=== PATIENT | male | born 1985 | race African-American/Black ===

== ENCOUNTER 2019-10-22 18:10 | Emergency (ER) | payer MEDICAID, OTHER ==
[~2019-10-22] VITALS: Ht 175.3 cm; Wt 97.5 kg
[2019-10-22 18:22] VITALS: BP 121/70
[2019-10-22] MEDS ORDERED: IBUPROFEN 600 MG TAB PO ONE (18:30)
[2019-10-22] MEDS ORDERED: ACETAMINOPHEN 325 MG TAB PO ONE (18:30)
== END 2019-10-22 20:33 | disposition home or self-care (01) ==
LOC: ER 18:10
DX: J10.1 Influenza due to other identified influenza virus with other respiratory manifestations (principal); F17.210 Nicotine dependence, cigarettes, uncomplicated
CPT/HCPCS: 71046; 87804

== ENCOUNTER 2019-10-24 07:23 | Emergency (ER) | payer MEDICAID ==
[~2019-10-24] VITALS: Ht 175.3 cm; Wt 97.5 kg
[2019-10-24] MEDS ORDERED: ACETAMINOPHEN 325 MG TAB PO ONE ×2 (07:39→07:45)
[2019-10-24] MEDS ORDERED: cefTRIAXone SOD 1,000 MG VL IM ONE (08:15)
[2019-10-24] MEDS ORDERED: IBUPROFEN 800 MG TAB PO ONE (08:15)
[2019-10-24 09:20] VITALS: BP 132/98
== END 2019-10-24 09:22 | disposition home or self-care (01) ==
LOC: ER 07:23
DX: J84.89 Other specified interstitial pulmonary diseases (principal); J20.9 Acute bronchitis, unspecified; J02.9 Acute pharyngitis, unspecified; F17.210 Nicotine dependence, cigarettes, uncomplicated
CPT/HCPCS: 71046; 96372; 99283; J0696

== ENCOUNTER 2024-08-08 10:38 | Emergency (ER) | payer MEDICAID ==
[~2024-08-08] VITALS: Ht 175.3 cm; Wt 83.4 kg
[~2024-08-08 10:38] MED LIST: AMIT-256 PO; DIVA-91 PO; QUET400T PO
[2024-08-08 12:03] VITALS: BP 129/63; PULSE 117; RESP 17; TEMP 98.2; O2SAT 97
[2024-08-08] MEDS ORDERED: ACE3T PO (12:12)
--- NOTE | 2024-08-08 12:18 | ED.PDOC ---
History of Present Illness HPI Comments A 38 YEAR OLD MALE PRESENTS TO THE ED WITH COMPLAINT OF RX REFILL. PT RECENTLY HAD DENTAL PROCEDURE WHERE THREE TEETH WERE EXTRACTED. PT WAS PRESCRIBED NORCO BUT HAS RUN OUT AND IS STILL EXPERIENCING PAIN. PATIENT DENIES FEVER, CHILLS, SHORTNESS OF BREATH, CHEST PAIN, ABDOMINAL PAIN, NAUSEA, VOMITING, HEADACHE, OR OTHER COMPLAINTS. NO OTHER SYMPTOMS OR MODIFYING FACTORS AT THIS TIME. PATIENT IS ALERT, ORIENTED X 4, AND HAS STEADY GAIT. Chief Complaint: Tooth Pain Time Seen by MD: 12:08 Primary Care Provider: HEIDY Reviewed Notes: Nurses Notes, Medications, Allergies Allergies: Coded Allergies: No Known Drug Allergy (Verified Allergy, Unknown, 07/28/24) Home Meds Active Scripts Acetaminophen W/ Codeine (Tylenol W/Cod #3) 1 Tab Tb, 1 TAB PO TID, #15 TAB Prov:NOEMY HERNANDEZ 08/08/24 Reported Medications Amitriptyline HCl (Amitriptyline Hydrochlori) 50 Mg Tab, 1 TAB PO DAILY for 30 Days, #30 04/16/24 Quetiapine Fumerate (Seroquel) 400 Mg Tab, 1 TAB PO QPM for 30 Days, #30 04/16/24 Divalproex Sodium (Depakote) 500 Mg Tab, 2 TAB PO QPM for 30 Days, #60 04/14/24 Information Source: Patient Mode of Arrival: Ambulatory Severity: Mild Timing: Days Duration: Since onset Medication Refill: Ran out of Medication, For: Pain (UPPER DENTAL PAIN ) Past Medical History PAST MEDICAL HISTORY: Denies Surgical History: Denies all surgeries Family History Family History: Unknown Social History Smoker: Cigarettes Alcohol: Occasionally Drugs: Denies Drug Use Lives In: Home Constitutional: denies: chills, diaphoresis, fatigue, fever, malaise, sweats, weakness, others EENTM: reports: mouth pain, others (TEETH PAIN); denies: blurred vision, double vision, ear bleeding, ear discharge, ear drainage, ear pain, ear ringing, eye pain, eye redness, hearing loss, nasal discharge, nose bleeding, nose congestion, nose pain, photophobia, tearing, throat pain, throat swelling, voice changes Respiratory: denies: cough, hemoptysis, orthopnea, SOB at rest, shortness of breath, SOB with excertion, stridor, wheezing, others Cardiovascular: denies: chest pain, dizzy spells, diaphoresis, Dyspnea on exertion, edema, irregular heart beat, left arm pain, lightheadedness, palpitations, PND, syncope, others Gastrointestinal: denies: abdomen distended, abdominal pain, blood streaked bowels, constipated, diarrhea, dysphagia, difficulty swallowing, hematemesis, melena, nausea, poor appetite, poor fluid intake, rectal bleeding, rectal pain, vomiting, others Genitourinary: denies: burning, dysuria, flank pain, frequency, hematuria, incontinence, penile discharge, penile sore, pain, testicle pain, testicle swelling, urgency, others Neurological: denies: dizziness, fainting, headache, left sided numbness, left sided weakness, numbness, paresthesia, pre-existing deficit, right sided numbnes s, right sided weakness, seizure, speech problems, tingling, tremors, weakness, others Musculoskeletal: denies: back pain, gout, joint pain, joint swelling, muscle pain, muscle stiffness, neck pain, others Integumetry: denies: bruises, change in color, change in hair/nails, dryness, laceration, lesions, lumps, rash, wounds, others Allergic/Immunocompromised: denies: Difficulty Healing, Frequent Infections, Hives, Itching, others Hematologic/Lymphatic: denies: anemia, blood clots, easy bleeding, easy bruising, swollen glands, others Endocrine: denies: excessive hunger, excessive sweating, excessive thirst, excessive urination, flushing, intolerance to cold, intolerance to heat, unexplained weight gain, unexplained weight loss, others Psychiatric: denies: anxiety, bipolar disorder, depression, hopeless, panic disorder, schizophrenia, sleepless, suicidal, others All Other Systems: Reviewed and Negative Physical Exam General Appearance: No Apparent Distress, Normal HEENT: Normal ENT Inspection, PERRL/EOMI, Pharynx Normal, TMs Normal, Other (TENDERNESS ON UPPER GUM AROUND TOOTH, NO BLEEDING AND BLOOD CLOTS. ) Neck: Full Range of Motion, Non-Tender, Normal, Normal Inspection Respiratory: Chest Non-Tender, Lungs Clear, No Accessory Muscle Use, No Respiratory Distress, Normal Breath Sounds Cardiovascular: No Edema, No JVD, No Murmur, No Gallop, Normal Peripheral Pulses, Regular Rate/Rhythm Breast Exam: Deferred Gastrointestinal: No Organomegaly, Non Tender, No Pulsatile Mass, Normal Bowel Sounds, Soft Genitalia: Deferred Pelvic: Deferred Rectal: Deferred Extremities: No calf tenderness, Normal capillary refill, Normal inspection, Normal range of motion, Non-tender, No pedal edema Musculoskeletal : Apperance: Normal Neurologic: Alert, manufacturing operator II-XII nml as Tested, No Motor Deficits, Normal Affect, Normal Mood, No Sensory Deficits Cerebellar Function: Normal Reflexes: Normal Skin: Dry, Normal Color, Warm Peripheral Pulses: 2+ carotid (R), 2+ carotid (L) Lymphatic: No Adenopathy Was a procedure done? Was a procedure done?: No Differential Dx Considerations may include: DENTAL PAIN, PAIN MANAGEMENT X-Ray, Labs, Meds, VS Vital Signs Date Time Temp Pulse Resp B/P (MAP) Pulse Ox O2 Delivery O2 Flow Rate FiO2 08/08/24 12:03 98.2 117 17 129/63 (85) 97 98.2 08/08/24 12:03 117 17 97 Room Air* 0 21 08/08/24 11:10 98.2 117 17 129/63 (85) 97 X-Ray, Labs, Meds, VS Comment COURSE: EXTERNAL MEDICAL RECORDS REVIEWED: [NONE] INDEPENDENT HISTORIANS: [NONE] SOCIAL DETERMINANTS OF HEALTH: [NONE] LABS ORDERED: NONE REVIEWED AND INTERPRETED RESULTS: NONE IMAGING ORDERED: NONE TREATMENTS ORDERED: NONE PROCEDURES PERFORMED: NONE CRITICAL CARE TIME: NONE I HAVE DISCUSSED THE PATIENT WITH THE ATTENDING PHYSICIAN DR. MIRANDA LORENZ AND SHE AGREES WITH THE PATIENT'S PLAN OF CARE AND DISPOSITION. GIVEN THE HISTORY AND PRESENT ILLNESS OF THE PATIENT, AFTER REVIEWING LABS, IMAGING, AND COURSE OF TREATMENT ADMINISTERED DURING THEIR ED VISIT, THERE IS LOW SUSPICION FOR RED FLAG FINDINGS. BASED ON HISTORY OF PRESENT ILLNESS, AND PHYSICAL EXAM, PATIENT WILL BE DISCHARGED HOME. DISCUSSED PLAN FOR DISCHARGE HOME WITH RX. MEDICATION WARNINGS GIVEN. SHARED DECISION MAKING: DISCUSSED WITH PATIENT THAT THEIR WORKUP WAS NORMAL. PATIENT INSTRUCTED TO FOLLOW UP WITH PRIMARY CARE PROVIDER IN 1-2 DAYS FOR RE- EVALUATION OF SYMPTOMS. PATIENT VERBALIZES UNDERSTANDING TO RETURN TO ED FOR NEW OR WORSENING SYMPTOMS OR IF FOLLOW UP WITH PCP CANNOT BE OBTAINED. PATIENT FEELS COMFORTABLE GOING HOME AT THIS TIME. ALL QUESTIONS ADDRESSED AT TIME OF DISCHARGE. Time of 1ST Reevaluation: 12:24 Reevaluation 1ST: Improved Patient Education/Counseling: Diagnosis, Treatment, Need For Follow Up Family Education/Counseling: Diagnosis, Treatment, No Family Present Medical Screening: No EMC Exist At This Time Departure 1 Departure Time of Disposition: 12:24 Impression: Primary Impression: Pain, dental Additional Impression: Medication refill Disposition: HOME / SELF CARE / HOMELESS Condition: Stable Additional Instructions: FOLLOW-UP WITH PCP IN 1 TO 2 DAYS. TAKE MEDICATIONS PRESCRIBED. RETURN TO ED FOR ANY NEW OR WORSENING SYMPTOMS. e-Prescriptions Acetaminophen W/ Codeine (Tylenol W/Cod #3) 1 Tab Tb 1 TAB PO TID, #15 TAB Prov: NOEMY HERNANDEZ 08/08/24 Discharged With: Self Critical Care Note Critical Care Time?: No Stability Stability form required: No Heart Score Heart Score: Heart Score Response (Comments) Value History N/A 0 EKG N/A 0 Age N/A 0 Risk Factors N/A 0 Troponin N/A 0 Total 0 I personally scribed for NOEMY HERNANDEZ ([email or web address]) on 08/08/24 at 12:18. Electronically submitted by Shana Landaverde ([email or web address]). NOEMY HERNANDEZ Aug 08, 2024 12:18
== END 2024-08-08 12:23 | disposition home or self-care (01) ==
LOC: ER 10:38
DX: K08.89 Other specified disorders of teeth and supporting structures (principal); F17.210 Nicotine dependence, cigarettes, uncomplicated; Z76.0 Encounter for issue of repeat prescription; Z79.899 Other long term (current) drug therapy

== ENCOUNTER 2024-09-22 03:10 | Emergency (ER) | payer MEDICAID ==
[~2024-09-22] VITALS: Ht 175.3 cm; Wt 80.3 kg
[~2024-09-22 03:10] MED LIST changes: +ACE3T PO
[2024-09-22 04:21] VITALS: BP 141/76; PULSE 90; RESP 20; TEMP 98.3; O2SAT 97
[2024-09-22] MEDS ORDERED: IBUP-1456 PO (04:40)
[2024-09-22] MEDS ORDERED: CLIN1CAP70 PO (04:40)
--- NOTE | 2024-09-22 04:40 | ED.PDOC ---
Eye-HPI HPI Comments 38-YEAR-OLD MALE PRESENTS TO ER WITH COMPLAINTS OF TOOTHACHE X1 MONTH. PATIENT REPORTS HE HAD A LEFT LOWER WISDOM TOOTH REMOVED ONE MONTH AGO AND HAS SINCE BEEN EXPERIENCING PAIN WITH ASSOCIATED LEFT-SIDED FACIAL SWELLING X1 MONTH THAT GOT WORSE X4 DAYS PROMPTING HIM TO COME TO ER FOR FURTHER EVALUATION. STATES HE DID FOLLOW UP WITH HIS ORAL SURGEON AT ONSET OF WORSENING SYMPTOMS FOUR DAYS AGO AND WAS PRESCRIBED AUGMENTIN ANTIBIOTICS THAT HE HAS BEEN TAKING WITHOUT RELIEF AND STATES THAT HE IS FOLLOWING UP WITH HIS ORAL SURGEON AGAIN TODAY. PATIENT RATES HIS CURRENT PAIN A 10/10 LOCALIZED TO REGION OF WHERE HIS LEFT LOWER WISDOM TOOTH WAS WITH RADIATION TOWARDS THE LEFT SIDE OF FACE. PATIENT PRESENTS TO ER AMBULATORY ON ARRIVAL, WITH STEADY GAIT, IN NO DISTRESS. DENIES FEVER, BODY ACHES, CHILLS, HEADACHE, NIGHT SWEATS, SHORTNESS OF BREATH OR ANY FURTHER SYMPTOMS/COMPLAINTS Chief Complaint: Tooth Pain Time Seen by MD: 03:24 Primary Care Provider: HEIDY Ordonez Notes: Nurses Notes, Medications, Allergies Allergies: Coded Allergies: No Known Drug Allergy (Verified Allergy, Unknown, 07/28/24) Home Meds Active Scripts Ibuprofen (Ibuprofen) 800 Mg Tab, 1 TAB PO TID PRN, #30 TAB 0 Refills Prov:LAUREN MORRISON 09/22/24 Clindamycin Hcl (Clindamycin Hcl) 300 Mg Cap, 300 MG PO QID for 7 Days, #28 CAP 0 Refills Prov:LAUREN MORRISON 09/22/24 Acetaminophen W/ Codeine (Tylenol W/Cod #3) 1 Tab Tb, 1 TAB PO TID, #15 TAB Prov:NOEMY HERNANDEZ 08/08/24 Reported Medications Amitriptyline HCl (Amitriptyline Hydrochlori) 50 Mg Tab, 1 TAB PO DAILY for 30 Days, #30 04/16/24 Quetiapine Fumerate (Seroquel) 400 Mg Tab, 1 TAB PO QPM for 30 Days, #30 04/16/24 Divalproex Sodium (Depakote) 500 Mg Tab, 2 TAB PO QPM for 30 Days, #60 04/14/24 Information Source: Patient Mode of Arrival: Ambulatory Past Medical History PAST MEDICAL HISTORY: Denies Surgical History (Other): LEFT LOWER WISDOM TOOTH REMOVAL- "ONE MONTH AGO" Family History Family History: Unknown Social History Smoker: Cigarettes, Less Than 1 Pack/Day Alcohol: Occasionally Drugs: Denies Drug Use Lives In: Home Constitutional: denies: chills, diaphoresis, fatigue, fever, malaise, sweats, weakness, others EENTM: reports: others ( STATED IN HPI) Respiratory: denies: cough, hemoptysis, orthopnea, SOB at rest, shortness of breath, SOB with excertion, stridor, wheezing, others Cardiovascular: denies: chest pain, dizzy spells, diaphoresis, Dyspnea on exertion, edema, irregular heart beat, left arm pain, lightheadedness, palpitations, PND, syncope, others Gastrointestinal: denies: abdomen distended, abdominal pain, blood streaked bowels, constipated, diarrhea, dysphagia, difficulty swallowing, hematemesis, melena, nausea, poor appetite, poor fluid intake, rectal bleeding, rectal pain, vomiting, others Genitourinary: denies: burning, dysuria, flank pain, frequency, hematuria, incontinence, penile discharge, penile sore, pain, testicle pain, testicle swelling, urgency, others Neurological: denies: dizziness, fainting, headache, left sided numbness, left sided weakness, numbness, paresthesia, pre-existing deficit, right sided nu mbness, right sided weakness, seizure, speech problems, tingling, tremors, weakness, others Musculoskeletal: denies: back pain, gout, joint pain, joint swelling, muscle pain, muscle stiffness, neck pain, others Integumetry: reports: others ( STATED IN HPI) Allergic/Immunocompromised: denies: Difficulty Healing, Frequent Infections, Hives, Itching, others Hematologic/Lymphatic: denies: anemia, blood clots, easy bleeding, easy bruising, swollen glands, others Endocrine: denies: excessive hunger, excessive sweating, excessive thirst, excessive urination, flushing, intolerance to cold, intolerance to heat, unexplained weight gain, unexplained weight loss, others Psychiatric: denies: anxiety, bipolar disorder, depression, hopeless, panic disorder, schizophrenia, sleepless, suicidal, others Physical Exam General Appearance: No Apparent Distress HEENT: PERRL/EOMI, Pharynx Normal, TMs Normal, Other (ABSENT LEFT LOWER WISDOM TOOTH NOTED WITH MILD SURROUNDING GUM SWELLING/ERYTHEMA, NO BLEEDING/DRAINAGE APPRECIATED. MILD LEFT-SIDED FACIAL SWELLING ALSO NOTED, NO FURTHER SKIN CHANGES NOTED.) Neck: Full Range of Motion, Non-Tender, Normal Respiratory: Chest Non-Tender, Lungs Clear, No Accessory Muscle Use, No Respiratory Distress, Normal Breath Sounds Cardiovascular: No Murmur, No Gallop, Regular Rate/Rhythm Breast Exam: Deferred Gastrointestinal: NOT DONE Genitalia: Deferred Pelvic: Deferred Rectal: Deferred Extremities: Normal capillary refill, Normal range of motion Neurologic: Alert, ventilation equipment tender II-XII nml as Tested, No Motor Deficits, Normal Affect, Normal Mood, No Sensory Deficits Cerebellar Function: Normal Reflexes: Normal Skin: Dry, Normal Color, Warm Lymphatic: No Adenopathy Was a procedure done? Was a procedure done?: No Sedation Sedation?: No EENT DIFF Eye: N/A Mouth: Thrush, Other (MEHUL'S ANGINA, DENTAL ABSCESS) X-Ray, Labs, Meds, VS Vital Signs Date Time Temp Pulse Resp B/P (MAP) Pulse Ox O2 Delivery O2 Flow Rate FiO2 09/22/24 04:21 98.3 90 20 141/76 (97) 97 98.3 09/22/24 04:21 90 20 97 Room Air 09/22/24 03:30 98.3 90 20 141/76 (97) 97 HEP-LOCK IV ORDERED CLINDAMYCIN 900 MG IV ORDERED ROCEPHIN 1 G IV ORDERED TORADOL 30 MG IV ORDERED HURRICANE SPRAY ORDERED, PATIENT EDUCATED ON PROPER USE/DOSAGE SMOKING CESSATION DISCUSSED AND ADVISED PATIENT HAD IMPROVEMENT IN SYMPTOMS AND IN NO DISTRESS PRIOR TO DISCHARGE ADVISED TO DISCONTINUE AUGMENTIN ANTIBIOTICS AND TAKE THE FOLLOWING ANTIBIOTICS BELOW PRESCRIBED PATIENT STATES HE IS FOLLOWING UP WITH HIS ORAL SURGEON TODAY. ADVISED TO FOLLOW UP WITH PCP IN 1-2 DAYS PATIENT VERBALIZED UNDERSTANDING AND AGREEABLE WITH CURRENT PLAN OF CARE ADVISED TO RETURN TO ER IMMEDIATELY IF SYMPTOMS WORSEN Time of 1ST Reevaluation: 04:12 Reevaluation 1ST: N/A Patient Education/Counseling: Diagnosis, Treatment, Prognosis, Need For Follow Up Family Education/Counseling: No Family Present Departure 1 Departure Time of Disposition: 04:32 Impression: Primary Impression: Dental infection Disposition: HOME / SELF CARE / HOMELESS Condition: Stable e-Prescriptions Ibuprofen (Ibuprofen) 800 Mg Tab 1 TAB PO TID PRN, #30 TAB 0 Refills Prov: LAUREN MORRISON 09/22/24 Clindamycin Hcl (Clindamycin Hcl) 300 Mg Cap 300 MG PO QID for 7 Days, #28 CAP 0 Refills Prov: LAUREN MORRISON 09/22/24 Discharged With: Self Critical Care Note Critical Care Time?: No Stability Stability form required: No Heart Score Heart Score: Heart Score Response (Comments) Value History N/A 0 EKG N/A 0 Age N/A 0 Risk Factors N/A 0 Troponin N/A 0 Total 0 LAUREN MORRISON Sep 22, 2024 04:40
[2024-09-22] MEDS: cefTRIAXone 1GM/50ML D5W 50 ML IV ONE (05:03)
[2024-09-22] MEDS: KETOROLAC TROMETH 30 MG/ML 1ML VIAL IV ONE (05:13)
[2024-09-22] MEDS: BENZOCAINE (DENTAL) 20 % SPRAY 60ML MT ONE (05:13)
[2024-09-22] MEDS: CLINDAMYCIN 900MG IV 50 ML IV ONE (05:32)
== END 2024-09-22 05:41 | disposition home or self-care (01) ==
LOC: ER 03:10
DX: K04.7 Periapical abscess without sinus (principal); F17.210 Nicotine dependence, cigarettes, uncomplicated; Z79.899 Other long term (current) drug therapy
CPT/HCPCS: 96365; 96375; 99284; J0696; J1885; J3490

== ENCOUNTER 2025-03-05 12:20 | Emergency (ER) | payer MEDICAID ==
[~2025-03-05] VITALS: Ht 175.3 cm; Wt 75.5 kg
[~2025-03-05 12:20] MED LIST changes: +CLIN1CAP70 PO; +IBUP-1456 PO
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
[2025-03-05] MEDS: KETOROLAC TROMETH 60MG/2ML VIAL IM ONE (13:44)
[2025-03-05 13:47] VITALS: BP 136/87; PULSE 91; RESP 19; TEMP 98.1; O2SAT 98
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
[2025-03-05] MEDS ORDERED: IBUP-1456 PO (14:04)
[2025-03-05] MEDS ORDERED: METH-1182 PO (14:04)
== END 2025-03-05 14:10 | disposition home or self-care (01) ==
LOC: ER 12:20
DX: S16.1XXA Strain of muscle, fascia and tendon at neck level, initial encounter (principal); G44.319 Acute post-traumatic headache, not intractable; F17.210 Nicotine dependence, cigarettes, uncomplicated; F10.90 Alcohol use, unspecified, uncomplicated; Z79.899 Other long term (current) drug therapy; Z79.1 Long term (current) use of non-steroidal anti-inflammatories (NSAID); V49.9XXA Car occupant (driver) (passenger) injured in unspecified traffic accident, initial encounter; Y93.89 Activity, other specified; Y92.488 Other paved roadways as the place of occurrence of the external cause; Y99.8 Other external cause status; Y90.9 Presence of alcohol in blood, level not specified
CPT/HCPCS: 70450; 72040; 96372; 99285; J1885